=== PATIENT | female | born 1995 | race Two or more races ===

== ENCOUNTER 2018-01-27 23:24 | Emergency (ER) | payer OTHER ==
[~2018-01-27] VITALS: Ht 165.1 cm; Wt 73.9 kg
[2018-01-28] MEDS ORDERED: TESSALON PERLE100 M1 PO (04:14)
[2018-01-28] MEDS ORDERED: AIRBORNE EFFER1 EACH PO (04:14)
[2018-01-28] MEDS ORDERED: ZOFRAN ODT4 MG SL (04:14)
[2018-01-28] MEDS ORDERED: KETO10TA2 PO (04:14)
== END 2018-01-28 04:13 | disposition home or self-care (01) ==
LOC: ER 23:24
DX: J11.1 Influenza due to unidentified influenza virus with other respiratory manifestations (principal); B34.9 Viral infection, unspecified; R51 Headache

== ENCOUNTER 2018-05-19 23:39 | Emergency (ER) | payer OTHER ==
[~2018-05-19] VITALS: Ht 165.1 cm; Wt 79.8 kg
[~2018-05-19 23:39] MED LIST: AIRBORNE EFFER1 EACH PO; KETO10TA2 PO; TESSALON PERLE100 M1 PO; ZOFRAN ODT4 MG SL
== END 2018-05-20 02:04 | disposition home or self-care (01) ==
LOC: ER 23:39
DX: R53.81 Other malaise (principal)

== ENCOUNTER → 2020-03-25 | Outpatient (CLI) | payer OTHER | END | disposition home or self-care (01) | LOC: PRENATAL 08:00 | PROVIDERS: ATTEND Obstetrics & Gynecology Maternal & Fetal Medicine | DX: O35.0XX1 Maternal care for (suspected) central nervous system malformation in fetus, fetus 1 (principal); O35.3XX1 Maternal care for (suspected) damage to fetus from viral disease in mother, fetus 1; O98.512 Other viral diseases complicating pregnancy, second trimester; Z36.89 Encounter for other specified antenatal screening; Z3A.21 21 weeks gestation of pregnancy ==

== ENCOUNTER 2020-07-23 07:40 | Inpatient (IN) | payer OTHER ==
[~2020-07-23] VITALS: Ht 165.1 cm; Wt 3.6 kg
[2020-07-23] MEDS ORDERED: PRENATAL CAPLE1 EAC1 PO (08:48)
[2020-07-26] MEDS ORDERED: Tylenol #3 PO (10:54)
== END 2020-07-26 18:14 | disposition home or self-care (01) | DRG 788 ==
LOC: LDR 07:40 → OB/GYN 07:40 → O/R 13:06 → OB/GYN 14:49
PROVIDERS: ADMIT Obstetrics & Gynecology; ATTEND Obstetrics & Gynecology
PROC: 10907ZC Drainage of Amniotic Fluid, Therapeutic from Products of Conception, Via Natural or Artificial Opening (ICD-10-PCS; 2020-07-23)
PROC: 3E033VJ Introduction of Other Hormone into Peripheral Vein, Percutaneous Approach (ICD-10-PCS; 2020-07-23)
PROC: 4A1HXFZ Monitoring of Products of Conception, Cardiac Rhythm, External Approach (ICD-10-PCS; 2020-07-23)
PROC: 10D00Z1 Extraction of Products of Conception, Low, Open Approach (ICD-10-PCS; principal; 2020-07-23 13:00)
DX: O62.1 Secondary uterine inertia (principal); O76 Abnormality in fetal heart rate and rhythm complicating labor and delivery; O26.853 Spotting complicating pregnancy, third trimester; O24.420 Gestational diabetes mellitus in childbirth, diet controlled; Z3A.37 37 weeks gestation of pregnancy; Z37.0 Single live birth; Z20.822 Contact with and (suspected) exposure to COVID-19

== ENCOUNTER 2022-12-14 07:18 | Emergency (ER) | payer OTHER ==
[~2022-12-14] VITALS: Ht 165.1 cm; Wt 74.8 kg
[~2022-12-14 07:18] MED LIST changes: +PRENATAL CAPLE1 EAC1 PO; +Tylenol #3 PO
[2022-12-14 09:36] LABS: HEMATOCRIT 39.2 % (36.0-45.00); HEMOGLOBIN 13.2 g/dL (12.0-15.00); MEAN CELL VOLUME 84.6 fL (80.00-100.00); MEAN CORPUSCULAR HEMOGLOBIN 28.6 pg (27.00-32.0); MEAN CORPUSCULAR HGB CONC 33.8 g/dl (32.0-36.0); PLATELET COUNT 342 K/uL (150-450); RED BLOOD COUNT 4.63 M/uL (4.00-6.00)
[2022-12-14 10:08] LABS: CALCIUM 8.8 mg/dL (8.5-10.1); CREATININE SERUM 0.88 mg/dL (0.55-1.02); GFR 75.97; POTASSIUM 3.56 mEq/L (3.5-5.1)
[2022-12-14 10:12] LABS: PH,URINE 5.5 (5.0-8.0); URINE APPEARANCE Cloudy; URINE BILIRRUBIN Small (NEGATIVE); URINE BLOOD Large; URINE COLOR Dark Yellow; URINE GLUCOSE Negative (NEGATIVE); URINE LEUKOCYTE Small; URINE NITRATE Negative; URINE PROTEIN 30 (NEGATIVE)
[2022-12-14 10:14] LABS: URINE BACTERIA 5655.9 uL (0.0-1933); URINE EPITHELIAL CELLS 69.2 uL (0.0-38.8); URINE RBC 146.8 uL (0.0-20.8); URINE WBC 80.5 uL (0.0-23.2)
[2022-12-14 11:03] LABS: URINE MUCUS HEAVY
== END 2022-12-14 13:28 | disposition home or self-care (01) ==
LOC: ER 07:18
PROVIDERS: General Practice
DX: K52.89 Other specified noninfective gastroenteritis and colitis (principal); E86.0 Dehydration; Z20.822 Contact with and (suspected) exposure to COVID-19
CPT/HCPCS: 36415; 96365; 99284; J7030